=== PATIENT | female | born 1960 | race Caucasian/White ===

== ENCOUNTER 2016-04-02 14:55 | Emergency (ER) | payer BC, OTHER ==
[2016-04-02 15:09] LABS: PH,URINE 5.5 (4.5-8); URINE APPEARANCE Clear; URINE BILIRUBIN Negative (NEGATIVE); URINE GLUCOSE (UA) Negative (NEGATIVE); URINE KETONE Negative (NEGATIVE); URINE LEUK ESTERASE Negative (NEGATIVE); URINE NITRITE Negative (NEGATIVE); URINE PROTEIN Negative (NEGATIVE); URINE UROBILINOGEN 0.2 E.U/dl (0.2-1.0)
[2016-04-02 15:20] LABS: URINE BLOOD 2+ (NEGATIVE); URINE COLOR YELLOW
[2016-04-02 15:23] VITALS: BP 111/81; PULSE 88; BMI 21.2
[2016-04-02] MEDS ORDERED: ALBUTEROL SO4 0.083% IH SOL 2.5 MG/3 ML VIAL.NEB. NEB ONE (15:40)
[2016-04-02] MEDS ORDERED: SODIUM CHLORIDE 1,000 ML IV SCH (15:45)
--- NOTE | 2016-04-02 15:46 | PDOC ---
History of Present Illness - General Chief Complaint: Respiratory Stated Complaint: COUGH, CONGESTION, LOWER BACK PAIN Time Seen by Provider: 04/02/16 15:01 - History of Present Illness Initial Comments: 04/02/16 15:43 55-year-old female with a past medical history of OAB, with a long smoking history of one half pack per day Patient states that usually at the end of February, every year, she gets a sinus infection/cough/flulike illness, which is treated with a Z-Ganga She states that this year at the end of February into early March she got the same, with a sinus infection cough, and flulike symptoms, and was prescribed a Z -Ganga by her primary care physician She states that that cleared her up nicely and she did well However on 03/26/16, she again developed congestion cough and fever, and in addition developed some flulike symptoms She also developed some back pain/bilateral flank pain with it, which is worse with cough or musculoskeletal maneuvers She was again started on a Z-Ganga, and and is now on day 4 of her second Z-Ganga She is complaining of occasional cough, productive of white to clear sputum since 03/26/16 She states that last night she "felt a little tight", and gave herself an albuterol neb After the neb that she was able to cough up some sputum and felt better She states she's feeling cold, and her temperature is been running a little low at home, in the 96 range She denies any dysuria urgency or frequency She denies any abdominal pain She denies any nausea vomiting or diarrhea (she had one episode of diarrhea which resolved) She denies any sore throat or earache at this time She denies any other complaints at this time, and the remainder of the review of systems is negative patient states that she was hospitalized in the past for a kidney infection Pt states she has been having some vaginal spotting in the past few days ( states she missed a few doses of her OCP in the past few days) Past History - Past Medical History Allergies/Adverse Reactions: Allergies Allergy/AdvReac Type Severity Reaction Status Date / Time Penicillins Allergy Unknown Verified 04/02/16 15:20 amoxicillin Allergy Verified 04/02/16 15:20 scopolamine Allergy Verified 04/02/16 15:20 MARIJUANA Allergy Severe Uncoded 04/02/16 15:20 BEE STINGS Allergy Uncoded 04/02/16 15:20 Home Medications: Ambulatory Orders Cholecalciferol (Vitamin D3) [Vitamin D-3] 2,000 unit PO DAILY capsule Disorders: Yes (OVERACTIVE BLADDER) - Immunization History Td Vaccination: Yes Immunization Up to Date: Yes - Psycho/Social/Smoking Cessation Hx Anxiety: No Suicidal Ideation: No Smoking Status: No Smoking History: Current every day smoker Years of Tobacco Use: 20 Have you smoked in the past 12 months: Yes Number of Cigarettes Smoked Daily: 10 Information on smoking cessation initiated: Yes 'Breaking Loose' booklet given: 06/11/14 Hx Alcohol Use: No Drug/Substance Use Hx: No Substance Use Type: None *Physical Exam - Vital Signs Last Vital Signs Temp Pulse Resp BP Pulse Ox 98.1 F 88 16 111/81 100 04/02/16 14:57 04/02/16 14:57 04/02/16 14:57 04/02/16 14:57 04/02/16 14:57 - Physical Exam Comments: 04/02/16 15:41 Physical exam Last Vital Signs Temp Pulse Resp BP Pulse Ox 98.1 F 88 16 111/81 100 04/02/16 14:57 04/02/16 14:57 04/02/16 14:57 04/02/16 14:57 04/02/16 14:57 GENERAL: The patient is awake, alert, and fully oriented, and in no apparent distress. HEAD: Normal with no signs of trauma. EYES: Sclera anicteric ENT: Moist mucous membranes. NECK: Normal range of motion, supple LUNGS: There is a prolonged expiratory phase, with occasional crackles, with mildly diminished air movement HEART: Regular rate and rhythm, normal S1 and S2 without murmur, rub or gallop. ABDOMEN: Soft, nontender, normoactive bowel sounds. No guarding, no rebound. No masses appreciated. Possible bilateral flank tenderness, and diffuse musculoskeltal back tenderness EXTREMITIES: Normal range of motion, no edema. No clubbing or cyanosis. No cords, erythema, or tenderness. NEUROLOGICAL: Cranial nerves II through XII grossly intact. Normal speech, normal gait. PSYCH: Normal mood, normal affect. SKIN: Warm, Dry, normal turgor, no rashes or lesions noted. ED Treatment Course - LABORATORY CBC & Chemistry Diagram: 04/02/16 16:20 04/02/16 16:20 - ADDITIONAL ORDERS Additional order review: Laboratory Results 04/02/16 15:00 Urine Color Yellow Urine Appearance Clear Urine pH 5.5 Ur Specific Cocoa 1.010 Urine Protein Negative Urine Glucose (UA) Negative Urine Ketones Negative Urine Blood 2+ H Urine Nitrite Negative Urine Bilirubin Negative Urine Urobilinogen 0.2 e.u/dl Ur Leukocyte Esterase Negative - RADIOLOGY Radiology Studies Ordered: Category Date Time Status CHEST PA & LAT [RAD] Stat Radiology 04/02/16 15:37 Ordered Medical Decision Making - Medical Decision Making 04/02/16 19:03 Laboratory Results - last 24 hr 04/02/16 04/02/16 04/02/16 15:00 16:20 16:20 WBC 4.2 D RBC 5.04 Hgb 15.2 Hct 45.5 H MCV 90.3 MCHC 33.3 RDW 11.9 Plt Count 158 D MPV 9.1 Sodium 134 L Potassium 3.6 D Chloride 98 Carbon Dioxide 26 Anion Gap 10 BUN 9 D Creatinine 0.9 Creat Clearance w eGFR > 60 Random Glucose 88 Lactic Acid Calcium 8.9 Magnesium 1.9 Total Bilirubin 0.3 D AST 37 D ALT 23 D Alkaline Phosphatase 62 Creatine Kinase Troponin I Total Protein 6.8 Albumin 4.2 Urine Color Yellow Urine Appearance Clear Urine pH 5.5 Ur Specific Cocoa 1.010 Urine Protein Negative Urine Glucose (UA) Negative Urine Ketones Negative Urine Blood 2+ H Urine Nitrite Negative Urine Bilirubin Negative Urine Urobilinogen 0.2 e.u/dl Ur Leukocyte Esterase Negative Urine HCG, Qual 04/02/16 04/02/16 04/02/16 16:20 16:20 16:20 WBC RBC Hgb Hct MCV MCHC RDW Plt Count MPV Sodium Potassium Chloride Carbon Dioxide Anion Gap BUN Creatinine Creat Clearance w eGFR Random Glucose Lactic Acid 1.147 Calcium Magnesium Total Bilirubin AST ALT Alkaline Phosphatase Creatine Kinase 98 Troponin I < 0.03 L Total Protein Albumin Urine Color Urine Appearance Urine pH Ur Specific Cocoa Urine Protein Urine Glucose (UA) Urine Ketones Urine Blood Urine Nitrite Urine Bilirubin Urine Urobilinogen Ur Leukocyte Esterase Urine HCG, Qual Negative Lactic acid normal Labwork reviewed UA without evidence of urinary tract infection (c/w hx of some vag spotting) Patient feeling much better after 1 L of normal saline, and wants to eat TSH pending, as the machine is down at [facility] Chest x-ray-NAD will discharge to home Addendum - TSH nml *DC/Admit/Observation/Transfer Diagnosis at time of Disposition: Dehydration, Back pain, Flank strain, Cough - Discharge Dispostion Disposition: HOME Condition at time of disposition: Improved - Referrals Referrals: Bart Lopez MD [Primary Care Provider] - Call tomorrow - Patient Instructions Additional Instructions: Increase fluid intake, rest, Tylenol or Motrin if needed for discomfort Followup with your primary care physician in 24-48 hours Return immediately if you worsen in any way The TSH is pending at this time - Post Discharge Activity Work/School Note: Back to Work
[2016-04-02 16:48] LABS: MCH 30.1 pg (25.7-33.7); MCHC 33.3 g/dl (32.0-36.0); MEAN CELL VOLUME 90.3 fl (80-96); MEAN PLT VOLUME 9.1 fl (7.5-11.1); PLATELET COUNT 158 K/MM3 (134-434); RDW 11.9 % (11.6-15.6); WHITE BLOOD COUNT 4.2 K/mm3 (4.0-10.0)
[2016-04-02 17:04] LABS: ALBUMIN 4.2 g/dl (3.5-5.0); ALK PHOS 62 U/L (32-92); ANION GAP 10 (8-16); BILIRUBIN,TOTAL 0.3 mg/dl (0.2-1.0); CALCIUM 8.9 mg/dl (8.4-10.2); CO2 26 mmol/L (22-28); CREATININE 0.9 mg/dl (0.6-1.3); GLUCOSE,RANDOM 88 mg/dl (74-106); MAGNESIUM 1.9 mg/dL (1.8-2.4); SGOT/AST 37 U/L (10-42); SGPT/ALT 23 U/L (10-40); TOT PROT 6.8 g/dl (6.4-8.3)
[2016-04-02 17:05] LABS: CPK(DFH) 98 IU/L (26-140)
[2016-04-02 17:23] LABS: TROPONIN I (DFP) < 0.03 ng/ml (0.03-0.50)
[2016-04-02 19:09] LABS: URINE BACTERIA FEW /hpf (NEGATIVE); URINE RBC 0-2 /hpf (0-3)
[2016-04-02 19:16] VITALS: TEMP 98.4
[2016-04-03 01:04] LABS: THYROID STIMULATING HORMONE 1.45 uIU/ml (0.358-3.74)
== END 2016-04-02 19:29 | disposition home or self-care (01) ==
LOC: FER 14:55
PROC: 3E0F7GC Introduction of Other Therapeutic Substance into Respiratory Tract, Via Natural or Artificial Opening (ICD-10-PCS; principal; 2016-04-02)
DX: E86.0 Dehydration (principal); M54.9 Dorsalgia, unspecified; T14.8 Other injury of unspecified body region; X58.XXXA Exposure to other specified factors, initial encounter; Y93.9 Activity, unspecified; Y92.9 Unspecified place or not applicable; F17.210 Nicotine dependence, cigarettes, uncomplicated
CPT/HCPCS: 36415; 71020-TC; 80053; 81003; 81015; 82550; 83605; 83735; 84443; 84484; 84703; 85027; 87040; 87086; 87186; 99283-25

== ENCOUNTER 2017-06-15 16:09 | Emergency (ER) | payer BC ==
[2017-06-15 16:39] VITALS: BP 137/80; PULSE 96; TEMP 97.8; BMI 21.2
--- NOTE | 2017-06-15 16:41 | PDOC ---
History of Present Illness - History of Present Illness Initial Comments: 06/15/17 17:58 Patient is a 57 F with PMHx of over pack a day smoker, overactive bladder, who presents today with jaw pain for 3 weeks. She states that on May 21 she had her left bottom molar extracted by dentist was was recommended by her regular dentist named Mario Ashley. She states that he was very heavy handed while extracting her tooth and did not give her any Novocaine or laughing gas. She states that she was looking in the mirror after the surgery and when she yawned she noticed that her jaw seems misaligned and a bone of some sort was sticking out.. She was worried of a possible fracture so she saw her regular dentist Dr. Raphael and was sent here for CT scan to rule out fracture. She states that it hurts to open and close her mouth. She also reports that for 3 weeks she has been unable to eat anything other than watered down oatmeal like consistency. As a result she states that she lost several pounds. She states that she has had multiple tooth extractions in the past and has never had any issues before. Also of note she was given Clindamycin 1 week prior to the extraction, and one week after the extraction to prevent infection. She denies lock jaw. She denies headache. She states she hasn't eaten in 2 weeks. She states she has a tooth extraction. She says that she has had tooth extractions before and has never had an issue before. Dentist: Dr Raphael Social history: Everyday smoker ( pack) Allergies: penicillin, amoxicillin, scopolamine <Jacy Gonzalez - Last Filed: 06/15/17 17:59> <Jesse Soria - Last Filed: 06/15/17 18:19> - General Chief Complaint: Toothache Stated Complaint: LEFT JAW PAIN, MAY 21, 2017 Time Seen by Provider: 06/15/17 16:13 Past History <Jacy Gonzalez - Last Filed: 06/15/17 17:59> - Past Medical History Disorders: Yes (OVERACTIVE BLADDER) - Immunization History Td Vaccination: Yes Immunization Up to Date: Yes - Suicide/Smoking/Psychosocial Hx Smoking Status: No Smoking History: Current every day smoker Years of Tobacco Use: 20 Have you smoked in the past 12 months: Yes Number of Cigarettes Smoked Daily: 10 'Breaking Loose' booklet given: 06/11/14 Hx Alcohol Use: No Drug/Substance Use Hx: No Substance Use Type: None <Jesse Soria - Last Filed: 06/15/17 18:19> - Past Medical History Allergies/Adverse Reactions: Allergies Allergy/AdvReac Type Severity Reaction Status Date / Time Penicillins Allergy Unknown Verified 06/15/17 16:17 amoxicillin Allergy Verified 06/15/17 16:17 scopolamine Allergy Verified 06/15/17 16:17 MARIJUANA Allergy Severe Uncoded 06/15/17 16:17 BEE STINGS Allergy Uncoded 06/15/17 16:17 Home Medications: Ambulatory Orders Cholecalciferol (Vitamin D3) [Vitamin D-3] 2,000 unit PO DAILY capsule Review of Systems - Review of Systems Constitutional: No: Chills, Fever HEENTM: Yes: Mouth Pain, Dental Problems Respiratory: No: Cough, Shortness of Breath Cardiac (ROS): No: Chest Pain All Other Systems: Reviewed and Negative <Jesse Soria - Last Filed: 06/15/17 18:19> *Physical Exam - Vital Signs Last Vital Signs Temp Pulse Resp BP Pulse Ox 97.8 F 96 H 16 137/80 100 06/15/17 16:12 06/15/17 16:12 06/15/17 16:12 06/15/17 16:12 06/15/17 16:12 - Physical Exam Comments: 06/15/17 17:59 GENERAL: The patient is awake, alert, and fully oriented, in no acute distress. HEAD/MOUTH: No facial asymmetry or soft tissue swelling or erythema. Tenderness to left TMJ, worsened with movement. Upper dentition intact without fluctuance or focal gingival tenderness. Surgical site of lower left molar is clean, dry, and intact. No preauricular lymphadenopathy or rash EYES: Pupils equal, round and reactive to light, extraocular movements intact, sclera anicteric, conjunctiva clear. EXTREMITIES: Normal range of motion, no edema. NEUROLOGICAL: Normal speech, normal gait. PSYCH: Normal mood, normal affect. SKIN: Warm, Dry, normal turgor, no rashes or lesions noted. <Jacy Gonzalez - Last Filed: 06/15/17 17:59> ED Treatment Course - RADIOLOGY Radiology Studies Ordered: Category Date Time Status FACIAL BONES CT W/O CONTRAST [CT] Stat CT Scan 06/15/17 16:15 Ordered <Jesse Soria - Last Filed: 06/15/17 18:19> Medical Decision Making - Medical Decision Making 06/15/17 16:38 My scribe note 57-year-old female presents with persistent left TMJ pain for almost 4 weeks following left lower molar extraction on 05/21. Patient had postprocedural soft tissue swelling, presents now referred by her dentist and PCP for imaging of her left TMJ which is been very painful since the procedure despite NSAIDs and Percocet. Has pain with biting, otherwise tolerating liquids. Vital signs normal. Alert and ambulating, speaking full sentences without difficulty No facial asymmetry or erythema or soft tissue swelling, there is tenderness at the left TMJ worsened with jaw opening, there is no evidence of infection or fluctuance internally or externally. 57-year-old female with left TMJ strain, rule out fracture/dislocation given recent procedure. Facial bone CT Discussed with dentist and dispo accordingly 06/15/17 18:07 CT without fracture or dislocation. + evidence of b/l TMJ, R worse than L. Given report and CD with images. Reassured, can f/u with her dentist. <Jesse Soria - Last Filed: 06/15/17 18:19> *DC/Admit/Observation/Transfer <Jacy Gonzalez - Last Filed: 06/15/17 17:59> <Jesse Soria - Last Filed: 06/15/17 18:19> Diagnosis at time of Disposition: TMJ (sprain of temporomandibular joint) Qualifiers: Encounter type: initial encounter Qualified Code(s): S03.40XA - Sprain of jaw, unspecified side, initial encounter - Discharge Dispostion Disposition: HOME Condition at time of disposition: Stable - Referrals Referrals: Bart Lopez MD [Primary Care Provider] - - Patient Instructions Printed Discharge Instructions: DI for Temporomandibular Disorder Additional Instructions: Activity as tolerated. Stay hydrated. Ibuprofen 600 mg every 8 hours as needed for pain. A CT scan does not show any dislocation or fracture. 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 Continue your medications as previously prescribed by your physician. You should follow up with your primary doctor and dentist as soon as possible regarding today's emergency department visit. Bring the CD and report with you. Return to the emergency department for any new or concerning symptoms, particularly severe swelling or intolerable pain, fevers or chills, pus or bleeding. - Post Discharge Activity
== END 2017-06-15 19:04 | disposition home or self-care (01) ==
LOC: FER 16:09
DX: S03.40XA Sprain of jaw, unspecified side, initial encounter (principal); X58.XXXA Exposure to other specified factors, initial encounter; Y93.89 Activity, other specified; Y92.9 Unspecified place or not applicable; F17.210 Nicotine dependence, cigarettes, uncomplicated
CPT/HCPCS: 70486-TC; 99281-25

== ENCOUNTER 2018-07-05 16:09 | Emergency (ER) | payer BC ==
[2018-07-05 16:14] VITALS: BMI 23.2
[2018-07-05] MEDS ORDERED: DIPHTH,PERTUSS(ACELL),TET 0.5 ML DISP.SYRIN IM ONE ×2 (16:28→16:30)
[2018-07-05] MEDS ORDERED: ACETAMINOPHEN 325 MG TABLET (FP) ONE (16:30)
[2018-07-05] MEDS ORDERED: ACETAMINOPHEN 325 MG TABLET (FP) PO ONE (16:30)
[2018-07-05 16:43] VITALS: BP 138/86; PULSE 86
--- NOTE | 2018-07-05 17:04 | PDOC ---
Attending Attestation - Resident Resident Name: Franki Randle - ED Attending Attestation I have performed the following: I have examined & evaluated the patient, The case was reviewed & discussed with the resident, I agree w/resident's findings & plan - HPI HPI: 07/05/18 16:56 58y/o F p/w facial injury after mechanical trip/fall over her dog. Pt fell forward striking face/forehead on dog food bowl, no LOC but feels a bit light- headed. no n/v/vision change/speech change/focal deficit. aggravated a chronic R shoulder injury but no motor/sensory deficit. not on blood thinners. - Physicial Exam PE: 07/05/18 17:04 VSS, well appearing and ambulating forehead lac as per resident note nasal abrasion with ecchymosis and chronic deformity nasal septum, no hematoma no cspine ttp, FROM slightly limited AROM R shoulder abduction but no bone ttp/deformity, otherwise FROM and nvi neuro normal - Medical Decision Making 07/05/18 17:06 58y/o F with mechanical slip and fall, forehead lac and nasal injury, neuro normal with no other red flags on history or physical exam. R shoulder strain without evidence for fracture/dislocation. ct head/cspine. concussion counseling performed. update tetanus suture forehead dispo accordingly
--- NOTE | 2018-07-05 17:19 | PDOC ---
History of Present Illness - General Chief Complaint: Laceration Stated Complaint: FALL Time Seen by Provider: 07/05/18 16:14 - History of Present Illness Initial Comments: 07/05/18 18:38 58y/o F p/w facial injury after mechanical trip/fall over her dog hitting her face with a ceramic bowl which didnt break. Pt fell forward striking face/forehead on dog food bowl, no LOC but feels a bit light-headed. Reports laceration over forehead midline, by the scalp no n/v/vision change/ speech change/focal deficit. aggravated a chronic R shoulder injury but no motor/sensory deficit. not on blood thinners. 07/05/18 18:38 07/05/18 18:41 Past History - Past Medical History Allergies/Adverse Reactions: Allergies Allergy/AdvReac Type Severity Reaction Status Date / Time Penicillins Allergy Unknown Verified 07/05/18 16:10 amoxicillin Allergy Verified 07/05/18 16:10 scopolamine Allergy Verified 07/05/18 16:10 MARIJUANA Allergy Severe Uncoded 07/05/18 16:10 BEE STINGS Allergy Uncoded 07/05/18 16:10 COPD: No CHF: No Disorders: Yes (OVERACTIVE BLADDER) - Immunization History Td Vaccination: Yes Immunization Up to Date: Yes - Suicide/Smoking/Psychosocial Hx Smoking Status: No Smoking History: Never smoked Years of Tobacco Use: 20 Have you smoked in the past 12 months: Yes Number of Cigarettes Smoked Daily: 10 'Breaking Loose' booklet given: 06/15/17 Hx Alcohol Use: No Drug/Substance Use Hx: No Substance Use Type: None Review of Systems - Review of Systems Able to Perform ROS?: Yes Is the patient limited Telugu proficient: No Constitutional: No: Symptoms Reported HEENTM: Yes: See HPI Respiratory: No: Symptoms reported Cardiac (ROS): No: Symptoms Reported, Irregular Heart Rate ABD/GI: No: Abd. Pain w/ defecation : No: Symptoms Reported Musculoskeletal: Yes: See HPI Integumentary: Yes: See HPI Neurological: No: Symptoms reported *Physical Exam - Vital Signs Last Vital Signs Temp Pulse Resp BP Pulse Ox 86 18 138/86 100 07/05/18 16:09 07/05/18 16:09 07/05/18 16:09 07/05/18 16:09 - Physical Exam Comments: 07/05/18 18:39 VSS, well appearing and ambulating forehead lac as per resident note nasal abrasion with ecchymosis and chronic deformity nasal septum, no hematoma no cspine ttp, FROM slightly limited AROM R shoulder abduction but no bone ttp/deformity, otherwise FROM and nvi neuro normal Procedures - Laceration/Wound Repair Upper Frontal Wound Length: 2.6 to 5.0 cm Wound's Depth, Shape: superficial, linear Irrigated w/ Saline: Yes Anesthesia: 2% Lidocaine Wound Repaired With: Sutures Suture Size/Type: 6:0 Number of Sutures: 5 ED Treatment Course - RADIOLOGY Radiology Studies Ordered: Category Date Time Status CERVICAL SPINE CT W/O CONTR [CT] Stat CT Scan 07/05/18 16:[address] WITHOUT CONTRAST [CT] Stat CT Scan 07/05/18 16:25 Completed KNEE 2 POS-LEFT [RAD] Stat Radiology 07/05/18 16:25 Taken SHOULDER-RIGHT [RAD] Stat Radiology 07/05/18 16:25 Taken - Medications Given in the ED: ED Medications Discontinued Medications Generic Name Dose Route Start Last Admin Trade Name Freq PRN Reason Stop Dose Admin Acetaminophen 650 mg 07/05/18 16:30 07/05/18 16:40 Tylenol - PO 07/05/18 16:31 650 mg ONCE ONE Administration Diphtheria/Tetanus/Acell Pertussis 0.5 ml 07/05/18 16:28 07/05/18 16:39 Boostrix - IM 07/05/18 16:29 0.5 ml .ONCE ONE Administration Medical Decision Making - Medical Decision Making 07/05/18 18:39 Ct head negative for fracture or bleed, no fracture on CT cervical neck. No fracture seen on xray of shoulder and knee. Laceration repaired with great care. 5 sutures. DC with return precautions and come back in 5 days. *DC/Admit/Observation/Transfer Diagnosis at time of Disposition: Laceration - Discharge Dispostion Disposition: HOME Condition at time of disposition: Stable Decision to Admit order: No - Referrals - Patient Instructions Printed Discharge Instructions: DI for Laceration Repair, DI for Suture Removal Additional Instructions: Come back to emergency department or your primary care provider in 5 days for suture removal. - Post Discharge Activity
[2018-07-05] MEDS ORDERED: LIDOCAINE HCL 1%, 10 MG/ML (20ML VIAL) ONE (18:08)
[2018-07-05] MEDS ORDERED: CYCLOBENZAPRINE HCL 10 MG TABLET (FP) ONE (19:08)
[2018-07-05] MEDS ORDERED: CYCLOBENZAPRINE HCL 5 MG TABLET PO STA (19:08)
== END 2018-07-05 19:09 | disposition home or self-care (01) ==
LOC: FER 16:09
PROC: 0HQ1XZZ Repair Face Skin, External Approach (ICD-10-PCS; principal; 2018-07-05)
PROC: 3E0234Z Introduction of Serum, Toxoid and Vaccine into Muscle, Percutaneous Approach (ICD-10-PCS; 2018-07-05)
DX: S01.81XA Laceration without foreign body of other part of head, initial encounter (principal); W01.0XXA Fall on same level from slipping, tripping and stumbling without subsequent striking against object, initial encounter; Y93.K1 Activity, walking an animal; Y92.89 Other specified places as the place of occurrence of the external cause; Z87.891 Personal history of nicotine dependence
CPT/HCPCS: 70450-TC; 72125-TC; 73030-TC-RT-FY; 73560-TC-LT-FY; 90715; 99282-25

== ENCOUNTER 2018-07-19 17:39 | Emergency (ER) | payer BC ==
--- NOTE | 2018-07-19 17:42 | PDOC ---
Suture Removal/Wound Check HPI - History of Present Illness Chief Complaint: Suture/Staple Removal(Here) Stated Complaint: suture removal placed here Time Seen by Provider: 07/19/18 17:41 History Source: Yes: Patient Exam Limitations: Yes: No Limitations Treated at: [facility] ED Date of Last ED visit: 07/05/18 - Previous ED Treatment Type of procedure performed on last visit: Yes: Laceration Repair Tetanus Immunization: Yes: Up to Date (5 sutures placed) Past History - Past Medical History Allergies/Adverse Reactions: Allergies Allergy/AdvReac Type Severity Reaction Status Date / Time Penicillins Allergy Unknown Verified 07/19/18 17:42 amoxicillin Allergy Verified 07/19/18 17:42 scopolamine Allergy Verified 07/19/18 17:42 MARIJUANA Allergy Severe Uncoded 07/05/18 16:10 BEE STINGS Allergy Uncoded 07/05/18 16:10 Home Medications: Ambulatory Orders Cyclobenzaprine HCl [Flexeril 10 mg] 20 mg PO BID PRN #20 tablet MDD 2 07/05/18 COPD: No CHF: No Disorders: Yes (OVERACTIVE BLADDER) - Immunization History Td Vaccination: Yes Immunization Up to Date: Yes - Suicide/Smoking/Psychosocial Hx Smoking Status: No Smoking History: Never smoked Years of Tobacco Use: 20 Have you smoked in the past 12 months: Yes Number of Cigarettes Smoked Daily: 10 'Breaking Loose' booklet given: 06/15/17 Hx Alcohol Use: No Drug/Substance Use Hx: No Substance Use Type: None *Review of Systems - Review of Systems Constitutional: No: Symptoms Reported HEENTM: No: Symptoms Reported Respiratory: No: Symptoms reported Cardiac (ROS): No: Symptoms Reported ABD/GI: No: Symptoms Reported : No: Symptoms Reported Musculoskeletal: No: Symptoms Reported Integumentary: No: Symptoms Reported Neurological: No: Symptoms reported *Physical Exam - Physical Exam General Appearance: Yes: Nourished, Appropriately Dressed. No: Apparent Distress HEENT: positive: EOMI, ARGELIA, Normal ENT Inspection Respiratory/Chest: positive: Lungs Clear Integumentary: positive: Normal Color, Dry, Warm, Other (5 sutures in forehead R side. laceratio well healed) Medical Decision Making - Medical Decision Making 07/19/18 18:10 Pt presenting for suture removal. 5 sutures placed 07/05/2018. 11 blade used to cut sutures. no complications. *DC/Admit/Observation/Transfer Diagnosis at time of Disposition: Visit for suture removal - Discharge Dispostion Disposition: HOME Condition at time of disposition: Improved Decision to Admit order: No - Referrals - Patient Instructions Printed Discharge Instructions: DI for Suture Removal Additional Instructions: You were seen in the emergency room today for suture removal. You had 5 sutures removed. The laceration looks like it healed well. Come back to the emergency room if you have any concerns. Thank you - Post Discharge Activity
[2018-07-19 17:49] VITALS: BP 124/74; TEMP 98; BMI 23.1
[2018-07-19 18:06] VITALS: PULSE 84
--- NOTE | 2018-07-19 18:10 | PDOC ---
Attending Attestation - Resident Resident Name: IvaSaYanira - ED Attending Attestation I have performed the following: I have examined & evaluated the patient, The case was reviewed & discussed with the resident, I agree w/resident's findings & plan, Exceptions are as noted - HPI HPI: 58 yo F presents 2 weeks s/p head injury for suture removal. Denies any drainage. Wound has been healing well. She was advised to leave the stitches in for a longer period of time as the wound was complicated. - Physicial Exam PE: GENERAL: Awake, alert, and fully oriented, in no acute distress HEAD: +Healing wound to R forehead NEUROLOGICAL: Cranial nerves II through XII grossly intact. Normal speech, normal gait. Motor and sensation intact SKIN: Warm, Dry, normal turgor, no rashes - Medical Decision Making Five sutures removed without incident. Stable for DC home.
== END 2018-07-19 18:08 | disposition home or self-care (01) ==
LOC: FER 17:39
DX: Z48.02 Encounter for removal of sutures (principal)
CPT/HCPCS: 99281-25